=== PATIENT | male | born 1970 | race Caucasian/White ===

== ENCOUNTER 2017-04-15 11:52 | Emergency (ER) | payer SELFPAY ==
[~2017-04-15] VITALS: Ht 187.9 cm; Wt 120.2 kg
--- NOTE | ~2017-04-15 | EKG ---
[place], [place] ELECTROCARDIOGRAM REPORT NAME: BRIAN MARTINEZ UNIT #: [id number] ROOM: DOCTOR: KIARA RAMON MD BIRTHDATE: [birth year] DOS: 04/15/2017 TIME: 1515 hours. Normal sinus rhythm at 58 beats per minute. The tracing is normal. No previous tracing is available in comparison. KIARA RAMON MD CM:EKGRPT:ELECTROCARDIOGRAM REPORT [id number] KIARA RAMON MD
[~2017-04-15 11:52] MED LIST: AMOXICILLIN500 MG PO; VICODIN ES 7501 TAB PO
[2017-04-15 14:14] LABS: BASO # 0.1 10*3/uL (0.0-0.1); BASO % 0.5 % (0.0-1.0); EOS # 0.2 10*3/uL (0.0-0.4); EOS % 1.3 % (1.0-4.0); HEMATOCRIT 48.2 % (42.0-52.0); HEMOGLOBIN 16.2 g/dl (14.0-18.0); LYMPH # 1.5 10*3/uL (1.3-4.4); LYMPH % 12.2 % (27.0-41.0); MEAN CELL VOLUME 95.4 fl (80.0-94.0); MEAN CORPUSCULAR HGB 32.1 pg (27.0-31.0); MEAN CORPUSCULAR HGB CONC 33.6 g/dl (33.0-37.0); MEAN PLATELET VOLUME 9.4 fl (9.6-12.3); MONO # 0.6 10*3/uL (0.1-1.0); MONO % 5.1 % (3.0-9.0); NEUT # 9.9 10*3/uL (2.3-7.9); NEUT % 80.4 % (47.0-73.0); PLATELET COUNT AUTOMATED 184 10*3/uL (130-400); RED BLOOD COUNT 5.05 10*6/uL (4.50-5.90); WHITE BLOOD COUNT 12.3 10*3/uL (4.8-10.8)
[2017-04-15 14:23] LABS: ACT PARTIAL THROMBO TIME 21.9 SECONDS (20.8-31.5); INTERNATIONAL NORM RATIO 0.9 (2.0-3.5)
[2017-04-15 14:25] LABS: BUN 16 mg/dl (7-24); CHLORIDE 106 mmol/L (98-107); CREATININE 1.12 mg/dL (0.70-1.30); POTASSIUM 4.6 mmol/L (3.5-5.1); SODIUM 139 mmol/L (136-145)
== END 2017-04-15 22:54 | disposition short-term general hospital (02) ==
LOC: ED 11:52
PROVIDERS: Emergency Medicine
DX: R59.1 Generalized enlarged lymph nodes (principal); R53.1 Weakness; I95.9 Hypotension, unspecified; M48.02 Spinal stenosis, cervical region; F17.200 Nicotine dependence, unspecified, uncomplicated; F10.10 Alcohol abuse, uncomplicated